=== PATIENT | male | born 1960 | race Caucasian/White ===

== ENCOUNTER 2018-12-12 10:05 | Day surgery (SDC) | payer OTHER ==
[~2018-12-12] VITALS: Ht 177.8 cm; Wt 105.1 kg
[~2018-12-12 10:05] MED LIST: OMEP20CA16 PO
[2018-12-12] MEDS ORDERED: GLUCOSAMINE HCL (10:56)
[2018-12-12] MEDS ORDERED: ALFUZOSIN (10:56)
[2018-12-12] MEDS ORDERED: TRUVADA (10:56)
[2018-12-12] MEDS ORDERED: [UNRECOGNIZED DRUG - OTHER] (10:56)
[2018-12-12] MEDS ORDERED: [UNRECOGNIZED DRUG - OTHER] (10:56)
[2018-12-12 11:01] VITALS: Ht 177.8 cm; Wt 105.1 kg
--- NOTE | 2018-12-12 11:13 | PREAC ---
Date/Time of Note Date/Time of Note DATE: 12/12/18 TIME: 11:11 Anesthesia Eval and Record Evaluation Time Pre-Procedure Interview DATE: 12/12/18 TIME: 11:11 Age 58 Sex male NPO: 8 hrs Preoperative diagnosis Hx of Colon Polyps Planned procedure Colonoscopy Past Medical History Past Medical History: Includes GI: GERD Psych: Depression Surgery & Anesthesia Issues No known issue Meds Anticoagulation: No Beta Skye within 24 hr: No Reason Beta Skye not given: Pt. not on B-Skye Reported Medications [Innate Thyroid ] No Conflict Check 12/12/18 [Glucosamine Hcl] No Conflict Check 12/12/18 [Qunol Federico] No Conflict Check 12/12/18 [Truvada] No Conflict Check 12/12/18 [Alfuzosin] No Conflict Check 12/12/18 Omeprazole* (Omeprazole*) 20 Mg Capsule.dr, 20 MG PO DAILY 12/29/13 Meds reviewed: Yes Allergies Coded Allergies: codeine (Verified Allergy, Intermediate, URINARY RETENTION , 12/12/18) Allergies Reviewed: Yes Labs/Studies Labs Reviewed: Reviewed by anesthesiologist test: N/A Studies: ECG Pre-procedure Exam Airway: Adequate mouth opening, Adequate thyromental dist Mallampati: Mallampati II Teeth: Normal Lung: Normal Heart: Normal ASA Physical Status ASA physical status: 2 Emergency: None Planned Anesthetic General/MAC: MAC Planned Pain Management Parenteral pain med Pre-operative Attestations Prior to commencing anesthesia and surgery, the patient was re-evaluated, there was verification of: *The patient's identity *The results of appropriate recent lab work and preoperative vital signs *The above evaluation not changing prior to induction *Anesthetic plan, risk benefits, alternative and complications discussed with patient/family; questions answered; patient/family understands, accepts and wishes to proceed. CHERIE MAHAN MD Dec 12, 2018 11:13
[2018-12-12] MEDS ORDERED: PROPOFOL 40 ML ONE (11:17)
[2018-12-12 11:21] VITALS: BP 121/69; PULSE 66; RESP 23
--- NOTE | 2018-12-12 11:35 | PAC ---
Date/Time of Note Date/Time of Note DATE: 12/12/18 TIME: 11:35 Post-Anesthesia Notes Post-Anesthesia Note Last documented vital signs T: 98.0 Activity: WNL Respiratory function: WNL Cardiovascular function: WNL Mental status: Baseline Pain reasonably controlled: Yes Hydration appropriate: Yes Nausea/Vomiting absent: Yes CHERIE MAHAN MD Dec 12, 2018 11:35
[2018-12-12 12:02] VITALS: BP 118/72; PULSE 51; RESP 17
== END 2018-12-12 15:17 | disposition home or self-care (01) ==
LOC: GIL 10:05
PROVIDERS: ATTEND Internal Medicine Gastroenterology
DX: Z86.010 Personal history of colon polyps (principal)